=== PATIENT | male | born 1990 | race Caucasian/White ===

== ENCOUNTER 2016-09-15 18:17 | Emergency (ER) | payer SELFPAY ==
--- NOTE | 2016-09-26 23:42 | ER ---
ADMIT: 09/15/2016 RM/LOC: ER [facility] MR#: [id number] [id number] [place], [place] [id number] SHAHLA HARDIN [address] [place] [address] Emergency Room Report SEX: M AGE: 25 : 1990 DATE: 09/15/2016 CHIEF COMPLAINT/HISTORY OF PRESENT ILLNESS: Tender swollen area left eyebrow. This has been going on for 375 days he says, about a year. Still present, and in the last 3 days have gotten him more of a hassle. It is a very large lump in the left end of the eyebrow, quite swollen, but is hard in the center. His review of systems is otherwise negative. He said he has had this issues before and as soon as he starts touching them they gets very inflamed and that is what he did with this one. He is a smoker 1/8th pack a day. PHYSICAL EXAMINATION: VITALS SIGNS: Blood pressure 149/82, with a heart rate of 80, respirations 18, temp is 98.4, O2 sats 100%. GENERAL: Mildly anxious. HEENT: This visit a tender erythema toes indurated area, but hard in the inside, it is in the left eyebrow end of it, lateral aspect, it is not movable. The rest of the physical examination is negative. He said he had been touching the swollen area, now it is inflamed and red. So, after getting his verbal consent to open the area and try to remove the content. He gave verbal consent. We did do an elliptical incision after using lidocaine with a #11 blade, and I was able to remove a dermoid cyst. The procedure was well tolerated. The area immediately went flat. The dermoid cyst was removed. There was no serosanguineous fluid and no pus. I closed the area with 6-0 suture one suture in the center. This was about less than a centimeter length, horizontal to the lateral aspect of the eyebrow. He then had the area covered for comfort. Tylenol or Motrin for pain. Do not get the area wet. Have sutures removed in 5 days. Keep the area clean, use soap and water to clean around it. May have to have a followup if inflammation continues. At this point, I did not give him any antibiotics because it did not look like it was infected. Inflamed yes, but not infected. DIAGNOSIS: Epidermoid cyst removal. DONNA Hou / Tyson Kim MD / santos JOB #: [id number] CC: Tyson Kim MD, Attending Physician Adam Martin MD, Family Physician
== END 2016-09-15 19:45 | disposition home or self-care (01) ==
LOC: ER 18:17
DX: D23.39 Other benign neoplasm of skin of other parts of face (principal); F17.210 Nicotine dependence, cigarettes, uncomplicated